=== PATIENT | female | born 1980 | race African-American/Black ===

== ENCOUNTER 2016-07-29 13:08 | Emergency (ER) | payer MEDICAID, OTHER ==
[2016-07-29 13:20] VITALS: BP 96/73; BMI 25.2
--- NOTE | 2016-07-29 13:29 | DR.GENAD ---
HPI - PCP Primary Care Physician: BRENDA - Complaint/Symptoms Chief Complaint:: HAD AND ANXIETY ATTACK ABOUT [address] GUTIERREZ WANTED ME TO COME GET CHECKED - Source History Provided: Patient - Mode of Arrival Mode of Arrival: Ambulatory - Timing Onset of Chief Complaint: 07/29/16 PMH - PMH Past Medical History: Yes Past Medical History: Anxiety, Migraines Past Surgical History: No Surgical History: No History - Family History History of Family Medical Conditions: Yes Family Medical History: Diabetes Mellitus, Hypertension - Social History Does any household member use tobacco: No Alcohol Use: None Do you use any recreational Drugs:: No Lives With: Family Lives Where: Home - infectious screening In the last 2 months have you had wt loss of >10#?: NO Have you had fever, night sweats or hemotysis?: No Have you traveled outside the country in the last 6 months?: No Isolation: Standard PE - Vital Signs Vitals: Temperature 98.4 F Pulse Rate 82 Respiratory Rate 18 Blood Pressure [Left Arm] 120/80 Blood Pressure [Right Arm] 112/72 Blood Pressure 96/73 O2 Sat by Pulse Oximetry 100 - Discharge Plan Condition: Stable - Follow ups/Referrals Follow ups/Referrals: DAVID GUTIERREZ [Primary Care Provider] - 3 days - Instructions
[2016-07-29 13:42] LABS: BILIRUBIN,URINE NEGATIVE (NEGATIVE); BLOOD/HEMOGLOBIN,URINE NEGATIVE (NEGATIVE); GLUCOSE, URINE NEGATIVE (NEGATIVE); KETONES,URINE NEGATIVE (NEGATIVE); LEUKOCYTE ESTERASE ,URINE NEGATIVE (NEGATIVE); NITRITES,URINE NEGATIVE (NEGATIVE); PROTEIN,URINE NEGATIVE (NEGATIVE); UROBILINOGEN,URINE 1+ (NORMAL)
[2016-07-29 13:53] LABS: APPEARANCE,URINE CLEAR (CLEAR); BACTERIA,URINE NEGATIVE /HPF (NEGATIVE); COLOR,URINE YELLOW (YELLOW); RBC,URINE 0-2 /HPF (NEGATIVE); SQUAMOUS EPITHELIAL CELL,UR RARE /HPF (NEGATIVE)
--- NOTE | 2016-07-29 14:25 | DR.GENAD ---
HPI - PCP Primary Care Physician: BRENDA - Complaint/Symptoms Chief Complaint Doctors Comments: Patient states that she had a history of anxiety attacks. Today her sister asked to take to a job interview but patient stated that she had a doctors appointment and could not go. Patient reports that her sister was not understanding and patient statred hyperventilating and became short of breath and told her doctor (OB) that she had to cancer her appointment; and OB physician advised her to come to the ED. Patient reported that she feels fine now. She denies any contractions. FHT 150s Chief Complaint:: HAD AND ANXIETY ATTACK ABOUT [address] GUTIERREZ WANTED ME TO COME GET CHECKED - Source History Provided: Patient - Mode of Arrival Mode of Arrival: Ambulatory - Timing Onset of Chief Complaint: 07/29/16 PMH - PMH Past Medical History: Yes Past Medical History: Anxiety, Migraines Past Surgical History: No Surgical History: No History - Family History History of Family Medical Conditions: Yes Family Medical History: Diabetes Mellitus, Hypertension - Social History Does any household member use tobacco: No Alcohol Use: None Do you use any recreational Drugs:: No Lives With: Family Lives Where: Home - infectious screening In the last 2 months have you had wt loss of >10#?: NO Have you had fever, night sweats or hemotysis?: No Have you traveled outside the country in the last 6 months?: No Isolation: Standard ROS - Review of Systems Constitutional: No Symptoms Reported Eyes: No Symptoms Reported ENTM: No Symptoms Reported Respiratoy: No Symptoms Reported Cardiovascular: No Symptoms Reported Gastrointestinal/Abdominal: No Symptoms Reported Genitourinary: No Symptoms Reported Neurological: Emotional Problems Musculoskeletal: No Symptoms Reported Integumentary: No Symptoms Reported Hematologic/Lymphatic: No Symptoms Reported Endocrine: No Symptoms Reported Psychiatric: No Symptoms Reported All Other Systems: Reviewed and Negative PE - Vital Signs Vitals: Temperature 98.4 F Pulse Rate 82 Respiratory Rate 18 Blood Pressure [Left Arm] 120/80 Blood Pressure [Right Arm] 112/72 Blood Pressure 96/73 O2 Sat by Pulse Oximetry 100 - General Limitations: No Limitations General Appearance: Alert, In No Apparent Distress - Head Head Exam: Normal Inspection, Atraumatic - Eyes Eye exam: Normal Appearance, PERRL, EOMI - ENT ENT Exam: Normal Exam External Ear Exam: Normal External Inspection TM/Canal Exam: Bilateral Normal Nose Exam: Normal Nose Exam Mouth Exam: Normal Inspection Throat Exam: Normal Inspection - Neck Neck Exam: Normal Inspection - Chest Chest Inspection: Normal Inspection - Respiratory Respiratory Exam: Bilateral Clear to Auscultation - Cardiovascular Cardiovascular Exam: Regular Rate, Normal Rhythm - Abdominal Exam Abdominal Exam: Normal Inspection, Normal Bowel Sounds Abdominal Tenderness: negative: RUQ, RLQ, LUQ, LLQ, Epigastrium, Suprapubic, Diffuse, Mild, Moderate, Severe, Other - Extremities Extremities Exam: Normal Inspection, Full ROM - Back Back Exam: Normal Inspection - Neurologic Neurological Exam: Alert, Oriented X3, CN II-XII Intact - Psychiatric Psychiatric Exam: Normal Affect, Normal Mood - Skin Skin Exam: Warm, Dry, Intact ROR - Labs Reviewed Laboratory: Specimen Type Clean catch urine 07/29/16 13:34 Urine Color Yellow (YELLOW) 07/29/16 13:34 Urine Appearance Clear (CLEAR) 07/29/16 13:34 Urine pH 8.0 (5.0 - 8.0) 07/29/16 13:34 Ur Specific [place] 1.010 (1.000-1.030) 07/29/16 13:34 Urine Protein Negative (NEGATIVE) 07/29/16 13:34 Urine Glucose (UA) Negative (NEGATIVE) 07/29/16 13:34 Urine Ketones Negative (NEGATIVE) 07/29/16 13:34 Urine Occult Blood Negative (NEGATIVE) 07/29/16 13:34 Urine Nitrite Negative (NEGATIVE) 07/29/16 13:34 Urine Bilirubin Negative (NEGATIVE) 07/29/16 13:34 Urine Urobilinogen 1+ (NORMAL) 07/29/16 13:34 Ur Leukocyte Esterase Negative (NEGATIVE) 07/29/16 13:34 Urine RBC 0-2 /HPF (NEGATIVE) 07/29/16 13:34 Urine WBC 0-2 /HPF (NEGATIVE) 07/29/16 13:34 Ur Squamous Epith Cells Rare /HPF (NEGATIVE) 07/29/16 13:34 Urine Bacteria Negative /HPF (NEGATIVE) 07/29/16 13:34 Ur Culture Indicated? No/not indicated 07/29/16 13:34 - Diagnosis Discharge Problem: Anxiety attack - Discharge Plan Condition: Stable - Follow ups/Referrals Follow ups/Referrals: DAVID GUTIERREZ [Primary Care Provider] - 3 days - Instructions
== END 2016-07-29 14:49 | disposition home or self-care (01) ==
LOC: ER 13:29
DX: F41.8 Other specified anxiety disorders (principal)
CPT/HCPCS: 81001; 99283; 99284

== ENCOUNTER 2016-08-08 08:48 | Emergency (ER) | payer OTHER ==
[2016-08-08 08:53] VITALS: BP 116/74; BMI 28.3
--- NOTE | 2016-08-08 09:12 | DR.GENAD ---
HPI - PCP Primary Care Physician: ines - Complaint/Symptoms Chief Complaint:: patient stated she has been vomiting since 3 am this morning. she stated she is also 7 months with her 5th child. - Source History Provided: Patient - Mode of Arrival Mode of Arrival: Ambulatory - Timing Onset of Chief Complaint: 08/07/16 PMH - PMH Past Medical History: Yes Past Medical History: Anxiety, Migraines Past Surgical History: No Surgical History: No History - Family History History of Family Medical Conditions: Yes Family Medical History: Diabetes Mellitus, Hypertension - Social History Does patient currently use any type of tobacco product: No Have you used tobacco products in the last 12 months: No Type of Tobacco Use: None Does any household member use tobacco: Yes Alcohol Use: None Do you use any recreational Drugs:: No Lives With: Family Lives Where: Home - infectious screening In the last 2 months have you had wt loss of >10#?: NO Have you had fever, night sweats or hemotysis?: No Have you traveled outside the country in the last 6 months?: No Isolation: Standard ROS - Review of Systems Constitutional: No Symptoms Reported Eyes: No Symptoms Reported ENTM: No Symptoms Reported Respiratoy: No Symptoms Reported Cardiovascular: No Symptoms Reported Gastrointestinal/Abdominal: No Symptoms Reported Genitourinary: No Symptoms Reported Neurological: No Symptoms Reported Musculoskeletal: No Symptoms Reported Integumentary: No Symptoms Reported Hematologic/Lymphatic: No Symptoms Reported Endocrine: No Symptoms Reported Psychiatric: No Symptoms Reported All Other Systems: Reviewed and Negative PE - Vital Signs Vitals: Temperature 98.5 F Pulse Rate 72 Respiratory Rate 16 Blood Pressure [Left Arm] 120/80 Blood Pressure [Right Arm] 112/72 Blood Pressure 116/74 O2 Sat by Pulse Oximetry 100 - General Limitations: No Limitations General Appearance: Alert, In No Apparent Distress - Head Head Exam: Normal Inspection, Atraumatic - Eyes Eye exam: Normal Appearance, PERRL, EOMI - ENT ENT Exam: Normal Exam External Ear Exam: Normal External Inspection TM/Canal Exam: Bilateral Normal Nose Exam: Normal Nose Exam Mouth Exam: Normal Inspection Throat Exam: Normal Inspection - Neck Neck Exam: Normal Inspection - Chest Chest Inspection: Normal Inspection - Respiratory Respiratory Exam: Normal Lung Sounds Bilat Respiratory Exam: Lower Clear to Auscultation - Cardiovascular Cardiovascular Exam: Regular Rate, Normal Rhythm - Abdominal Exam Abdominal Exam: Normal Inspection Abdominal Tenderness: negative: RUQ, RLQ, LUQ, LLQ, Epigastrium, Suprapubic, Diffuse, Mild, Moderate, Severe, Other - Extremities Extremities Exam: Normal Inspection - Back Back Exam: Normal Inspection - Neurologic Neurological Exam: Alert, Oriented X3, CN II-XII Intact - Psychiatric Psychiatric Exam: Normal Affect - Skin Skin Exam: Warm, Dry, Intact Course - Reevaluation 1st: Improved ROR - Labs Reviewed Laboratory Results Reviewed?: Yes (strep positive; Urine: 1+leuk;wbc4-8,Ketones 2+) Result Diagrams: 08/08/16 09:25 08/08/16 09:25 Laboratory: WBC 9.5 X10^3/uL (3.6-10.0) 08/08/16 09:25 RBC 4.19 X10^6/uL (3.5-5.4) 08/08/16 09:25 Hgb 11.5 g/dL (12.0-16.0) L 08/08/16 09:25 Hct 33.3 % (36.0-47.0) L 08/08/16 09:25 MCV 79.4 fL (80.0-100.0) L 08/08/16 09:25 MCH 27.5 pg (27.0-34.0) 08/08/16 09:25 MCHC 34.7 g/dL (33.0-35.0) 08/08/16 09:25 RDW 12.8 % (11.6-16.5) 08/08/16 09:25 Plt Count 191 X10^3/uL (150.0-450.0) 08/08/16 09:25 MPV 10.0 fL (7.4-11.0) 08/08/16 09:25 Neut % 73.9 % (42.0-75.0) 08/08/16 09:25 Lymph % 17.8 % (21.0-51.0) L 08/08/16 09:25 [place] % 6.5 % (0.0-13.0) 08/08/16 09:25 Eos % 0.8 % (0.9-2.9) L 08/08/16 09:25 Baso % 1.0 % (0.2-1.0) 08/08/16 09:25 Neut # 7.0 x10^3/uL (2.2-4.8) H 08/08/16 09:25 Lymph # 1.7 X10^3/uL (1.3-2.9) 08/08/16 09:25 [place] # 0.6 x10^3/uL (0.3-0.8) 08/08/16 09:25 Eos # 0.1 x10^3/uL (0.0-0.2) 08/08/16 09:25 Baso # 0.1 X10^3/uL (0.0-0.1) 08/08/16 09:25 Absolute Nucleated RBC 0.0 /100WBC 08/08/16 09:25 Sodium 139 mmol/L (136-145) 08/08/16 09:25 Corrected Sodium TNP 08/08/16 09:25 Potassium 3.5 mmol/L (3.5-5.1) 08/08/16 09:25 Chloride 104 mmol/L (98-107) 08/08/16 09:25 Carbon Dioxide 24.1 mmol/L (21-32) 08/08/16 09:25 BUN 4 mg/dL (7-18) L 08/08/16 09:25 Creatinine 0.52 mg/dL (0.55-1.02) L 08/08/16 09:25 Est GFR (MDRD) Af Amer > 60 (>60) 08/08/16 09:25 Est GFR (MDRD) Non-Af > 60 (>60) 08/08/16 09:25 Glucose 91 mg/dL (65-99) 08/08/16 09:25 Calcium 8.5 mg/dL (8.5-10.1) 08/08/16 09:25 C-Reactive Protein 5.60 mg/L (0-3.0) H 08/08/16 09:25 Specimen Type Clean catch urine 08/08/16 09:33 Urine Color Yellow (YELLOW) 08/08/16 09: Urine Appearance Slightly hazy (CLEAR) 08/08/16 09:33 Urine pH 6.0 (5.0 - 8.0) 08/08/16 09:33 Ur Specific [place] 1.015 (1.000-1.030) 08/08/16 09:33 Urine Protein 2+ (NEGATIVE) 08/08/16 09:33 Urine Glucose (UA) Negative (NEGATIVE) 08/08/16 09:33 Urine Ketones 2+ (NEGATIVE) 08/08/16 09:33 Urine Occult Blood Negative (NEGATIVE) 08/08/16 09:33 Urine Nitrite Negative (NEGATIVE) 08/08/16 09:33 Urine Bilirubin 1+ (NEGATIVE) 08/08/16 09:33 Urine Urobilinogen 2+ (NORMAL) 08/08/16 09:33 Ur Leukocyte Esterase 1+ (NEGATIVE) 08/08/16 09:33 Urine RBC 0-1 /HPF (NEGATIVE) 08/08/16 09:33 Urine WBC 4-8 /HPF (NEGATIVE) 08/08/16 09:33 Ur Squamous Epith Cells Moderate /HPF (NEGATIVE) 08/08/16 09:33 Urine Bacteria Trace /HPF (NEGATIVE) 08/08/16 09:33 Urine Mucus Moderate /HPF (NEGATIVE) 08/08/16 09:33 Ur Culture Indicated? No/not indicated 08/08/16 09:33 Streptococcus Screen Positive (NEGATIVE) A 08/08/16 09:33 - Diagnosis Discharge Problem: Strep pharyngitis UTI (urinary tract infection) during Qualifiers: Trimester: third trimester Qualified Code(s): O23.43 - Unspecified infection of urinary tract in , third trimester - Discharge Plan Condition: Stable - Follow ups/Referrals Follow ups/Referrals: DAVID GUTIERREZ [Primary Care Provider] - 3 days - Instructions
[2016-08-08] MEDS ORDERED: NS 1000 ML 1,000 ML IV ONE (09:14)
[2016-08-08] MEDS ORDERED: ZOFRAN INJ 4 MG VIAL IVP ONE (09:14)
[2016-08-08] MEDS ORDERED: NS 1000 ML 1,000 ML ONE (09:16)
[2016-08-08] MEDS ORDERED: ZOFRAN INJ 4 MG VIAL ONE (09:16)
[2016-08-08 09:46] LABS: BASOPHILS # (AUTO) 0.1 X10^3/uL (0.0-0.1); EOSINOPHILS # (AUTO) 0.1 x10^3/uL (0.0-0.2); EOSINOPHILS % (AUTO) 0.8 % (0.9-2.9); HEMATOCRIT 33.3 % (36.0-47.0); HEMOGLOBIN 11.5 g/dL (12.0-16.0); LYMPHOCYTES # (AUTO) 1.7 X10^3/uL (1.3-2.9); LYMPHOCYTES % (AUTO) 17.8 % (21.0-51.0); MEAN CORPUSCULAR HEMOGLOBIN 27.5 pg (27.0-34.0); MEAN CORPUSCULAR HGB CONC 34.7 g/dL (33.0-35.0); MEAN CORPUSCULAR VOLUME 79.4 fL (80.0-100.0); MONOCYTES # (AUTO) 0.6 x10^3/uL (0.3-0.8); MONOCYTES % (AUTO) 6.5 % (0.0-13.0); NEUTROPHILS % (AUTO) 73.9 % (42.0-75.0); PLATELET COUNT 191 X10^3/uL (150.0-450.0); RED BLOOD COUNT 4.19 X10^6/uL (3.5-5.4); RED CELL DISTRIBUTION WIDTH 12.8 % (11.6-16.5); WHITE BLOOD COUNT 9.5 X10^3/uL (3.6-10.0)
[2016-08-08 09:46] LABS: BILIRUBIN,URINE 1+ (NEGATIVE); BLOOD/HEMOGLOBIN,URINE NEGATIVE (NEGATIVE); GLUCOSE, URINE NEGATIVE (NEGATIVE); KETONES,URINE 2+ (NEGATIVE); LEUKOCYTE ESTERASE ,URINE 1+ (NEGATIVE); NITRITES,URINE NEGATIVE (NEGATIVE); PROTEIN,URINE 2+ (NEGATIVE); UROBILINOGEN,URINE 2+ (NORMAL)
[2016-08-08 09:51] LABS: BLOOD UREA NITROGEN 4 mg/dL (7-18); CALCIUM 8.5 mg/dL (8.5-10.1); CARBON DIOXIDE 24.1 mmol/L (21-32); CHLORIDE 104 mmol/L (98-107); CREATININE 0.52 mg/dL (0.55-1.02); GLUCOSE 91 mg/dL (65-99); SODIUM 139 mmol/L (136-145); eGFR BLACK RACES > 60 (>60); eGFR NON BLACK RACES > 60 (>60)
[2016-08-08 09:56] LABS: COLOR,URINE YELLOW (YELLOW)
[2016-08-08 09:57] LABS: APPEARANCE,URINE SLIGHTLY HAZY (CLEAR); BACTERIA,URINE TRACE /HPF (NEGATIVE); MUCUS,URINE MODERATE /HPF (NEGATIVE); RBC,URINE 0-1 /HPF (NEGATIVE); SQUAMOUS EPITHELIAL CELL,UR MODERATE /HPF (NEGATIVE)
== END 2016-08-08 11:05 | disposition home or self-care (01) ==
LOC: ER 08:56
DX: J02.0 Streptococcal pharyngitis (principal); O23.43 Unspecified infection of urinary tract in pregnancy, third trimester
CPT/HCPCS: 36415; 80048; 81001; 85025; 86140; 87880; 96365; 96374; 99283; 99284; A4222; J2405

== ENCOUNTER 2016-09-01 05:53 | Emergency (ER) | payer OTHER ==
[2016-09-01 06:01] VITALS: BMI 26.8
[2016-09-01 06:29] LABS: BILIRUBIN,URINE NEGATIVE (NEGATIVE); BLOOD/HEMOGLOBIN,URINE NEGATIVE (NEGATIVE); GLUCOSE, URINE NEGATIVE (NEGATIVE); KETONES,URINE NEGATIVE (NEGATIVE); LEUKOCYTE ESTERASE ,URINE NEGATIVE (NEGATIVE); NITRITES,URINE NEGATIVE (NEGATIVE); PROTEIN,URINE NEGATIVE (NEGATIVE); UROBILINOGEN,URINE NORMAL (NORMAL)
[2016-09-01 06:41] LABS: APPEARANCE,URINE SLIGHTLY HAZY (CLEAR); BACTERIA,URINE TRACE /HPF (NEGATIVE); COLOR,URINE YELLOW (YELLOW); RBC,URINE 0 /HPF (NEGATIVE); SQUAMOUS EPITHELIAL CELL,UR MODERATE /HPF (NEGATIVE)
[2016-09-01] MEDS ORDERED: AMPICILLIN VIAL 2 GM ONE (06:49)
[2016-09-01] MEDS ORDERED: NS 100 ML IV 100 ML IV ONE (06:49)
[2016-09-01] MEDS ORDERED: NS 1000 ML 1,000 ML ONE (06:49)
[2016-09-01] MEDS ORDERED: CELESTONE SOLUSPAN ONE (06:50)
[2016-09-01] MEDS ORDERED: MAGNESIUM SULFATE 40 GM IV 40 GM/1,000 ML BAG IV ONE (06:50)
[2016-09-01] MEDS ORDERED: CELESTONE SOLUSPAN IM ONE (07:00)
[2016-09-01] MEDS ORDERED: AMPICILLIN VIAL 2 GM 2 GM in NS 100 ML IV + SPIKE MINIBAG* 100 ML IV ONE (07:00)
[2016-09-01] MEDS ORDERED: MAGNESIUM SULFATE 40 GM IV 40 GM/1,000 ML BAG IV PRN (07:00)
[2016-09-01] MEDS ORDERED: NS 1000 ML 1,000 ML IV ONE (07:00)
[2016-09-01 07:36] VITALS: BP 114/75
== END 2016-09-01 07:45 | disposition short-term general hospital (02) ==
LOC: ER 05:57
PROC: 0T9B70Z Drainage of Bladder with Drainage Device, Via Natural or Artificial Opening (ICD-10-PCS; principal; 2016-09-01)
DX: O60.03 Preterm labor without delivery, third trimester (principal)
CPT/HCPCS: 51702; 81001; 96365; 96374; 96375; 99285; A4222; J0290; J3475

== ENCOUNTER 2016-09-06 22:04 | Emergency (ER) | payer OTHER ==
[2016-09-06 22:28] VITALS: BP 110/74; BMI 27.1
[2016-09-06 22:57] LABS: BILIRUBIN,URINE NEGATIVE (NEGATIVE); BLOOD/HEMOGLOBIN,URINE 1+ (NEGATIVE); GLUCOSE, URINE NEGATIVE (NEGATIVE); KETONES,URINE NEGATIVE (NEGATIVE); LEUKOCYTE ESTERASE ,URINE 2+ (NEGATIVE); NITRITES,URINE NEGATIVE (NEGATIVE); PH,URINE 6.5 (5.0 - 8.0); PROTEIN,URINE NEGATIVE (NEGATIVE); UROBILINOGEN,URINE 2+ (NORMAL)
[2016-09-06 23:10] LABS: APPEARANCE,URINE SLIGHTLY HAZY (CLEAR); BACTERIA,URINE 1+ /HPF (NEGATIVE); COLOR,URINE DARK YELLOW (YELLOW); MUCUS,URINE FEW /HPF (NEGATIVE); SQUAMOUS EPITHELIAL CELL,UR MANY /HPF (NEGATIVE)
--- NOTE | 2016-09-07 06:26 | DR.GENAD ---
HPI - PCP Primary Care Physician: BRENDA - Complaint/Symptoms Chief Complaint:: PT STATES" I Saw Dr. Newman today and she gave me a rx i been throwing up all day and sleeping" Self Treatment fo Chief Complaint: pt - Source History Provided: Patient - Mode of Arrival Mode of Arrival: Ambulatory - Timing Onset of Chief Complaint: 09/06/16 PMH - PMH Past Medical History: Yes Past Medical History: Anxiety, Migraines Past Surgical History: Yes Surgical History: No History - Family History History of Family Medical Conditions: Yes Family Medical History: Diabetes Mellitus, Hypertension - Social History Do you use any recreational Drugs:: No Lives With: Family Lives Where: Home - infectious screening In the last 2 months have you had wt loss of >10#?: NO Have you had fever, night sweats or hemotysis?: No Have you traveled outside the country in the last 6 months?: No Isolation: Standard PE - Vital Signs Vitals: Temperature 98.6 F Pulse Rate 103 Respiratory Rate 18 Blood Pressure [Left Arm] 114/75 Blood Pressure [Right Arm] 112/72 Blood Pressure 110/74 O2 Sat by Pulse Oximetry 100 ROR - Labs Reviewed Laboratory: Specimen Type Clean catch urine 09/06/16 22:47 Urine Color Dark yellow (YELLOW) 09/06/16 22:47 Urine Appearance Slightly hazy (CLEAR) 09/06/16 22:47 Urine pH 6.5 (5.0 - 8.0) 09/06/16 22:47 Ur Specific [place] 1.010 (1.000-1.030) 09/06/16 22:47 Urine Protein Negative (NEGATIVE) 09/06/16 22:47 Urine Glucose (UA) Negative (NEGATIVE) 09/06/16 22:47 Urine Ketones Negative (NEGATIVE) 09/06/16 22:47 Urine Occult Blood 1+ (NEGATIVE) 09/06/16 22:47 Urine Nitrite Negative (NEGATIVE) 09/06/16 22:47 Urine Bilirubin Negative (NEGATIVE) 09/06/16 22:47 Urine Urobilinogen 2+ (NORMAL) 09/06/16 22:47 Ur Leukocyte Esterase 2+ (NEGATIVE) 09/06/16 22:47 Urine RBC 2-3 /HPF (NEGATIVE) 09/06/16 22:47 Urine WBC 8-10 /HPF (NEGATIVE) 09/06/16 22:47 Ur Squamous Epith Cells Many /HPF (NEGATIVE) 09/06/16 22:47 Urine Bacteria 1+ /HPF (NEGATIVE) 09/06/16 22:47 Urine Mucus Few /HPF (NEGATIVE) 09/06/16 22:47 Ur Culture Indicated? Yes/culture set up 09/06/16 22:47 - Discharge Plan Disposition: 01 HOME, SELF-CARE Condition: Stable - Follow ups/Referrals Follow ups/Referrals: DAVID NEWMAN [Primary Care Provider] - 3 days - Instructions Instructions: Third Trimester of , [id number], Nausea, Adult, Easy- to-Read Additional Instructions: RETURN TO ER FOR INCREASE PAIN, WATER BREAKS, BRIGHT RED VAGINAL BLEEDING, DECREASE IN MOVEMENT, HEAD ACHE, BLURRED VISION.
== END 2016-09-06 23:40 | disposition home or self-care (01) ==
LOC: SUPCPDRO 22:04 → ER 22:32
DX: R11.2 Nausea with vomiting, unspecified (principal); Z3A.00 Weeks of gestation of pregnancy not specified
CPT/HCPCS: 81001; 87086; 99284

== ENCOUNTER 2016-09-24 13:56 | Inpatient (IN) | payer OTHER ==
[2016-09-24 14:16] VITALS: BMI 27.0
[2016-09-24 14:23] LABS: BILIRUBIN,URINE NEGATIVE (NEGATIVE); BLOOD/HEMOGLOBIN,URINE 3+ (NEGATIVE); GLUCOSE, URINE NEGATIVE (NEGATIVE); KETONES,URINE NEGATIVE (NEGATIVE); LEUKOCYTE ESTERASE ,URINE NEGATIVE (NEGATIVE); NITRITES,URINE NEGATIVE (NEGATIVE); PROTEIN,URINE NEGATIVE (NEGATIVE); UROBILINOGEN,URINE 2+ (NORMAL)
[2016-09-24 14:29] LABS: APPEARANCE,URINE SLIGHTLY HAZY (CLEAR); COLOR,URINE YELLOW (YELLOW)
[2016-09-24 14:32] LABS: BACTERIA,URINE NEGATIVE /HPF (NEGATIVE); RBC,URINE 0 - 4 /HPF (NEGATIVE); SQUAMOUS EPITHELIAL CELL,UR RARE /HPF (NEGATIVE)
[2016-09-24] MEDS ORDERED: PITOCIN ONE (14:37)
[2016-09-24] MEDS ORDERED: D5 1/2 NS 1000 ML 1,000 ML IV ONE (14:37)
[2016-09-24] MEDS ORDERED: D5 1/2 NS 1000ML W PITOCIN 20 U/L 1,000 ML IV ONE (14:37)
[2016-09-24] MEDS ORDERED: D5LR 1000ML W PITOCIN 10 U/L 1,000 ML IV ONE (14:37)
[2016-09-24 14:39] LABS: AMNISURE ROM TEST NO MEMBRANES RUPTURE (NO RUPTURE)
[2016-09-24] MEDS ORDERED: D5 1/2 NS 1000 ML 1,000 ML IV SCH (14:52)
[2016-09-24] MEDS ORDERED: AMPICILLIN VIAL 2 GM ONE (15:00)
[2016-09-24] MEDS ORDERED: NS 100 ML IV 100 ML IV ONE (15:00)
[2016-09-24] MEDS ORDERED: AMPICILLIN VIAL 2 GM 2 GM in NS 100 ML IV + SPIKE MINIBAG* 100 ML IV SCH (15:00)
[2016-09-24] MEDS ORDERED: NUBAIN INJ 200 MG VIAL MULTIDOSE IVP PRN (15:20)
[2016-09-24] MEDS ORDERED: PHENERGAN INJ 25 MG IV PRN ×2 (15:20→17:59)
[2016-09-24] MEDS ORDERED: PITOCIN IVP ONE (15:20)
[2016-09-24] MEDS ORDERED: DILAUDID INJ IVP PRN (15:20)
[2016-09-24] MEDS ORDERED: REGLAN INJ 10 MG VIAL IVP PRN ×2 (15:20→18:46)
[2016-09-24] MEDS ORDERED: D5LR 1000ML W PITOCIN 10 U/L 1,000 ML IV PRN (15:42)
[2016-09-24 15:48] LABS: BASOPHILS # (AUTO) 0.1 X10^3/uL (0.0-0.1); BASOPHILS % (AUTO) 1.3 % (0.2-1.0); EOSINOPHILS # (AUTO) 0.1 x10^3/uL (0.0-0.2); EOSINOPHILS % (AUTO) 1.4 % (0.9-2.9); HEMATOCRIT 30.5 % (36.0-47.0); HEMOGLOBIN 10.7 g/dL (12.0-16.0); LYMPHOCYTES # (AUTO) 1.6 X10^3/uL (1.3-2.9); LYMPHOCYTES % (AUTO) 24.7 % (21.0-51.0); MEAN CORPUSCULAR HGB CONC 35.1 g/dL (33.0-35.0); MEAN PLATELET VOLUME 8.7 fL (7.4-11.0); MONOCYTES # (AUTO) 0.6 x10^3/uL (0.3-0.8); MONOCYTES % (AUTO) 8.4 % (0.0-13.0); NEUTROPHILS # (AUTO) 4.2 x10^3/uL (2.2-4.8); NEUTROPHILS % (AUTO) 64.2 % (42.0-75.0); PLATELET COUNT 199 X10^3/uL (150.0-450.0); RED BLOOD COUNT 3.96 X10^6/uL (3.5-5.4); RED CELL DISTRIBUTION WIDTH 13.1 % (11.6-16.5); WHITE BLOOD COUNT 6.6 X10^3/uL (3.6-10.0)
[2016-09-24 15:52] LABS: BLOOD UREA NITROGEN 2 mg/dL (7-18); CALCIUM 8.4 mg/dL (8.5-10.1); CARBON DIOXIDE 25.3 mmol/L (21-32); CHLORIDE 105 mmol/L (98-107); CREATININE 0.48 mg/dL (0.55-1.02); GLUCOSE 78 mg/dL (65-99); SODIUM 138 mmol/L (136-145); eGFR BLACK RACES > 60 (>60); eGFR NON BLACK RACES > 60 (>60)
[2016-09-24] MEDS: D5 1/2 NS 1000 ML 1,000 ML with PITOCIN 20 UNITS IV SCH ×2 (17:49)
--- NOTE | 2016-09-24 17:58 | DR.OB ---
OB Quick Note - Assessment/Plan Assessment/Plan: Delivery Note RN ONCOLOGY RESEARCH 09/24/16 at 5:50pm Patient complete and pushing. Head delivered over intact perineum. No nuchal cord. Nose and mouth bulb suctioned. Body delivered over intact perineum. Cord clamped x 2 and cut. handed to attendant. Cord sent for gases. Placenta delivered spontaneously / intact / 3 vessel cord. No CVX / vaginal / perineal tears. Viable male , VTX/OA, wt=5'14" and 9/9, stable to NBN. Mother stable to RR. IAT=430tr.
[2016-09-24] MEDS ORDERED: MOTRIN TAB 800 MG PO PRN (17:59)
[2016-09-24] MEDS ORDERED: D5 1/2 NS 1000 ML 1,000 ML with PITOCIN 20 UNITS IV SCH ×2 (18:00)
[2016-09-24] MEDS ORDERED: NUBAIN INJ 10 ONE (18:12)
[2016-09-24] MEDS ORDERED: AMBIEN PO PRN (18:46)
[2016-09-24] MEDS ORDERED: DERMOPLAST SPRAY TOP PRN (18:46)
[2016-09-24] MEDS ORDERED: ADACEL TDaP IM ONE ×2 (18:46→22:39)
[2016-09-24] MEDS ORDERED: MILK OF MAGNESIA PO PRN (18:46)
[2016-09-24] MEDS ORDERED: AMPICILLIN VIAL 1 GM 1 GM in NS 50 ML IV + SPIKE MINIBAG* 50 ML IV SCH (19:23)
[2016-09-24] MEDS: MOTRIN TAB 800 MG PO PRN (22:31)
[2016-09-25] MEDS: MOTRIN TAB 800 MG PO PRN (06:09)
[2016-09-25 06:18] LABS: HEMATOCRIT 26.4 % (36.0-47.0); HEMOGLOBIN 9.2 g/dL (12.0-16.0)
[2016-09-25] MEDS: PREVACID PO SCH (08:10)
[2016-09-25] MEDS: CELEXA PO SCH (08:10)
[2016-09-25] MEDS: PRENATAL PLUS PO SCH (08:10)
[2016-09-25] MEDS ORDERED: DEPO-PROVERA CONTRACEPTIVE INJ IM ONE ×2 (08:28→21:31)
[2016-09-25] MEDS ORDERED: CELEXA PO SCH (09:00)
[2016-09-25] MEDS ORDERED: PREVACID PO SCH (09:00)
[2016-09-25] MEDS: FERROUS SULFATE PO SCH (18:55)
[2016-09-26] MEDS: D5 1/2 NS 1000 ML 1,000 ML with PITOCIN 20 UNITS IV SCH ×2 (04:35)
[2016-09-26] MEDS: FERROUS SULFATE PO SCH (06:00)
[2016-09-26] MEDS: PRENATAL PLUS PO SCH (09:06)
[2016-09-26] MEDS: CELEXA PO SCH (09:06)
[2016-09-26] MEDS: PREVACID PO SCH (09:07)
[2016-09-26 10:02] VITALS: BP 116/75
== END 2016-09-26 11:30 | disposition home or self-care (01) | DRG 775 ==
LOC: ER 13:56 → LD 14:32 → MED/SURG 18:46
PROVIDERS: ADMIT Specialist; ATTEND Specialist
PROC: 10E0XZZ Delivery of Products of Conception, External Approach (ICD-10-PCS; principal; 2016-09-24)
PROC: 3E0234Z Introduction of Serum, Toxoid and Vaccine into Muscle, Percutaneous Approach (ICD-10-PCS; 2016-09-24)
DX: O60.14X0 Preterm labor third trimester with preterm delivery third trimester, not applicable or unspecified (principal); Z37.0 Single live birth; Z3A.36 36 weeks gestation of pregnancy; O09.213 Supervision of pregnancy with history of pre-term labor, third trimester; O26.893 Other specified pregnancy related conditions, third trimester; Z23 Encounter for immunization
CPT/HCPCS: 36415; 59409; 80048; 81001; 84112; 85014; 85018; 85025; 86592; 86850; 86900; 86901; 96365; 99284; A4216; A4222; S0197; J0290; J1050; J2300; J2590; J7042

== ENCOUNTER 2017-02-24 09:36 | Emergency (ER) | payer OTHER ==
[2017-02-24 09:45] VITALS: BP 132/84; BMI 25.4
[2017-02-24] MEDS ORDERED: BACITRACIN ZINC ONE (10:00)
--- NOTE | 2017-02-24 10:11 | DR.LACERAT ---
HPI - Time Seen Time seen: 10:10 - Primary Care Physician Primary Care Physician: NFD - HPI Comment HPI Comment: TD NOT UTD - Complaints Chief Complaint Doctors Comments: HISTORY BELOW. 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 AVULSION TEAR NOTED TO LEFT THUMB. - Reviewed Nurses Notes Reviewed: Yes - Source History Provided: Patient - Mode of Arrival Mode of Arrival: Ambulatory - Timing Onset of Chief Complaint: 02/24/17 - Context Mechanism: Glass Circumstance: Work-related Tetanus Vaccination: Unknown - Severity Pain Severity: Mild Bleeding:: Controlled - Associated Signs and Symptoms Associated Signs and Symptoms: None PMH - PMH Past Medical History: Yes Past Medical History: Anxiety, Migraines Past Surgical History: No Surgical History: No History - Family History History of Family Medical Conditions: Yes Family Medical History: Diabetes Mellitus, Hypertension - Social History Does patient currently use any type of tobacco product: Yes Have you used tobacco products in the last 12 months: Yes Type of Tobacco Use: BLACK&MILD Does any household member use tobacco: No Alcohol Use: None Do you use any recreational Drugs:: No Lives With: Family Lives Where: Home - infectious screening In the last 2 months have you had wt loss of >10#?: NO Have you had fever, night sweats or hemotysis?: No Have you traveled outside the country in the last 6 months?: No Isolation: Standard ROS - Review of Systems Constitutional: No Symptoms Reported Eyes: No Symptoms Reported ENTM: No Symptoms Reported Respiratoy: No Symptoms Reported Cardiovascular: No Symptoms Reported Gastrointestinal/Abdominal: No Symptoms Reported Genitourinary: No Symptoms Reported Neurological: No Symptoms Reported Musculoskeletal: No Symptoms Reported Integumentary: No Symptoms Reported, Other (AVULSION LAC LT THUMB.) Hematologic/Lymphatic: No Symptoms Reported Endocrine: No Symptoms Reported All Other Systems: Reviewed and Negative PE - Vital Signs Vitals: Temperature 98.1 F Pulse Rate 78 Respiratory Rate 17 Blood Pressure [Left Arm] 113/64 Blood Pressure [Right Arm] 116/75 Blood Pressure 132/84 O2 Sat by Pulse Oximetry 100 - General Limitations: No Limitations General Appearance: Alert - Head Head Exam: Normal Inspection - Eyes Eye exam: Normal Appearance - ENT ENT Exam: Normal External Ear Exam - Neck Neck Exam: Normal Inspection - Chest Chest Inspection: Symmetric Chest Wall Rise - Respiratory Respiratory Exam: Normal Lung Sounds Bilat Respiratory Exam: Bilateral Clear to Auscultation - Cardiovascular Cardiovascular Exam: Regular Rate, Normal Rhythm, Normal Heart Sounds - Abdominal Exam Abdominal Exam: Normal Inspection - Extremities Extremities Exam: Tenderness (TIP LT THUMB AVUSION LAC INNER ASPECT) - Back Back Exam: Normal Inspection - Neurologic Neurological Exam: Alert, Oriented X3 - Psychiatric Psychiatric Exam: Normal Affect, Normal Mood - Skin Skin Exam: Erythema MDM - Differential Diagnosis Differential Diagnosis: Avulsion (LAC LT THUMB) Course - Treatment Treatment: SEE ORDERS. - Education/Counseling Education/Counseling: Patient, Education Educated On: Treatment, Diagnosis, Needs for Follow Up ROR - Labs Reviewed Laboratory: Non-DOT Drug Screen Collected 02/24/17 10:30 - Diagnosis Discharge Problem: Laceration - Discharge Plan Disposition: 01 HOME, SELF-CARE Condition: Stable - Follow ups/Referrals Follow ups/Referrals: NFD,None [Primary Care Provider] - 3 days - Instructions Instructions: Laceration Care, Adult, [id number] Additional Instructions: RETURN TO ED IF WORSE.
== END 2017-02-24 10:16 | disposition home or self-care (01) ==
LOC: ER 09:36
PROC: 0XQM0ZZ Repair Left Thumb, Open Approach (ICD-10-PCS; principal; 2017-02-24)
DX: S61.012A Laceration without foreign body of left thumb without damage to nail, initial encounter (principal); W25.XXXA Contact with sharp glass, initial encounter; Y92.69 Other specified industrial and construction area as the place of occurrence of the external cause
CPT/HCPCS: 12001; 99000; 99282

== ENCOUNTER 2017-03-22 08:42 | Emergency (ER) | payer SELFPAY ==
[2017-03-22 08:48] VITALS: BP 127/74; BMI 24.5
--- NOTE | 2017-03-22 09:11 | DR.GENAD ---
HPI - PCP Primary Care Physician: none - Complaint/Symptoms Chief Complaint Doctors Comments: Patient complains of right thumb pain for one month. She denies trauma. She admits to numbness. She denies any redness or edema Chief Complaint:: "right hand pain that has been going on for a month" - Source History Provided: Patient - Mode of Arrival Mode of Arrival: Ambulatory - Timing Onset of Chief Complaint: 03/03/17 PMH - PMH Past Medical History: Yes Past Medical History: Anxiety, Migraines Past Surgical History: No Surgical History: No History - Family History History of Family Medical Conditions: Yes Family Medical History: Diabetes Mellitus, Hypertension - Social History Does patient currently use any type of tobacco product: Yes Have you used tobacco products in the last 12 months: Yes Type of Tobacco Use: Cigars How many years tobacco product used: 5 Does any household member use tobacco: No Alcohol Use: None Do you use any recreational Drugs:: No Lives With: Family Lives Where: Home - infectious screening In the last 2 months have you had wt loss of >10#?: NO Have you had fever, night sweats or hemotysis?: No Have you traveled outside the country in the last 6 months?: No Isolation: Standard ROS - Review of Systems Eyes: No Symptoms Reported ENTM: No Symptoms Reported Respiratoy: No Symptoms Reported Cardiovascular: No Symptoms Reported Gastrointestinal/Abdominal: No Symptoms Reported Genitourinary: No Symptoms Reported Neurological: No Symptoms Reported Musculoskeletal: No Symptoms Reported Integumentary: No Symptoms Reported Hematologic/Lymphatic: No Symptoms Reported Endocrine: No Symptoms Reported Psychiatric: No Symptoms Reported All Other Systems: Reviewed and Negative PE - Vital Signs Vitals: Temperature 97.4 F Pulse Rate 71 Respiratory Rate 18 Blood Pressure [Left Arm] 113/64 Blood Pressure [Right Arm] 116/75 Blood Pressure 127/74 O2 Sat by Pulse Oximetry 100 - General Limitations: No Limitations General Appearance: Alert, In No Apparent Distress - Head Head Exam: Normal Inspection, Atraumatic - Eyes Eye exam: Normal Appearance, PERRL, EOMI - ENT ENT Exam: Normal Exam External Ear Exam: Normal External Inspection TM/Canal Exam: Bilateral Normal Nose Exam: Normal Nose Exam, Sinus Tenderness Mouth Exam: Normal Inspection Throat Exam: Normal Inspection - Neck Neck Exam: Normal Inspection - Chest Chest Inspection: Normal Inspection - Respiratory Respiratory Exam: Normal Lung Sounds Bilat Respiratory Exam: Bilateral Clear to Auscultation - Cardiovascular Cardiovascular Exam: Regular Rate, Normal Rhythm - Abdominal Exam Abdominal Exam: Normal Inspection, Normal Bowel Sounds Abdominal Tenderness: negative: RUQ, RLQ, LUQ, LLQ, Epigastrium, Suprapubic, Diffuse, Mild, Moderate, Severe, Other - Extremities Extremities Exam: Normal Inspection - Back Back Exam: Normal Inspection, Full ROM - Neurologic Neurological Exam: Alert, Oriented X3, CN II-XII Intact - Psychiatric Psychiatric Exam: Normal Affect - Skin Skin Exam: Warm, Dry, Intact ROR - XRAY XRAY Interpreted by: Radiologist (Right hand: No fracture identified. Small ossicle at the margin of the thumb interphalangeal joint may not be of clinical significance although it may represent a postraumatic residual.) - Diagnosis Discharge Problem: Pain of right thumb - Discharge Plan Condition: Stable - Follow ups/Referrals Follow ups/Referrals: NFD,None [Primary Care Provider] - 3 days - Instructions
--- NOTE | 2017-03-22 09:36 | RAD ---
Examination: Right hand, three views History: Thumb pain, no trauma Findings: No acute fracture, dislocation or bone destruction. There is a 2.0 mm separate bone fragmen t at the margin of the interphalangeal joint of the thumb. There is no associated soft tissue swellin g. Visualized articular surfaces are smooth and well defined. Impression: No fracture identified. Small ossicle at the margin of the thumb interphalangeal joint ma y not be of clinical significance, although it may represent a posttraumatic residual. Correlate with site of pain/symptoms. Reported By:
== END 2017-03-22 10:06 | disposition home or self-care (01) ==
LOC: ER 08:52
DX: M79.644 Pain in right finger(s) (principal)
CPT/HCPCS: 73130; 99282